=== PATIENT | female | born 1950 | race Caucasian/White ===

== ENCOUNTER → 2018-06-14 06:06 | Day surgery (SDC) | payer MEDICARE, MEDICAID ==
--- NOTE | 2018-06-08 21:39 | HP ---
CC: Dr. Michi Sheehan.* ADMISSION HISTORY AND PHYSICAL: DATE OF ADMISSION: 06/14/18 ATTENDING SURGEON: Dr. Junior Gant * (JAIR Erickson dictating). CHIEF COMPLAINT: Left breast cancer. HISTORY OF PRESENT ILLNESS: This is a 67-year-old female with COPD and chronic neck pain, who first noted a left breast lump about 1 month ago. She found it "accidentally" and does do a periodic but not regular monthly self-breast exam. She has noticed some tenderness in the area of the lump. There have not been any other changes including nipple discharge, bloody or otherwise. She was seen by her PCP, Dr. Sheehan and referred for mammogram. Mammogram was done on 05/17/18 and compared with prior mammogram from 2011. Noted was a density in the 12 o'clock position 2 cm from the nipple measuring 2.9 x 2.5 cm and suspicious for malignancy. This was confirmed by ultrasound. Also noted was a density in the tail of the breast consistent with lymph node. The patient was seen in the office by Dr. Gant on 05/21/18. His exam noted a palpable mass in the upper left breast, which was mildly tender and suspicious for malignancy. There was no skin or nipple change. There was no palpable lymphadenopathy bilaterally. There were no palpable abnormalities of the right breast. A needle biopsy was performed on the lesion in the office and pathology showed invasive ductal carcinoma which was ER positive, [place] negative and HER-2/lino negative. Dr. Gant discussed with her again today the results of the biopsy, the indications for surgery, the process for staging, and the likely need for additional therapy. She would like to proceed as scheduled with wide excision of left breast cancer with sentinel lymph node biopsy. There is no known family history of breast or ovarian cancer. The patient herself has not had any other prior breast problems or breast biopsies. PAST MEDICAL HISTORY: COPD, chronic neck pain (tentatively scheduled for a decompressive neck surgery in the near future, which for now has been deferred) . The patient did have a fall 4 to 5 years ago while at work with some associated amnesia and I believe loss of consciousness, though apparently negative workup and no subsequent events. PAST SURGICAL HISTORY: Previous surgeries include lumbar back surgery, bilateral cataract extractions, multiple basal cell excisions, right carpal tunnel release, and multiple surgeries for ovarian cysts as well as a laparotomy for small bowel obstruction for lysis of adhesions. No reported surgical or anesthesia problems. CURRENT MEDICATIONS: 1. Albuterol nebulizer 4 times daily. 2. Combivent MDI 1 puff 4 times a day p.r.n. 3. [place] 5/325 t.i.d. (occasionally 4 times daily) for neck pain. 4. Multivitamin once daily. 5. CBD oil 0.5 mL b.i.d. DRUG ALLERGIES: CEFTRIAXONE (rash and difficulty breathing) (the patient has subsequently tolerated cephalexin without significant side effect). FAMILY HISTORY: Negative for anesthesia problems, bleeding or clotting disorders, and negative for breast or ovarian cancer. SOCIAL HISTORY: The patient lives with one of her daughters (she has 3 daughters and 1 granddaughter present at today's visit). She is retired from school cafeteria work. She is a smoker around 1 pack per day for the past 50 years. She is attempting to cut down and would like to eventually quit. I did discuss with her the benefits of smoking cessation at least for the morning of surgery. She drinks alcohol rarely and denies any other drug use. REVIEW OF SYSTEMS: General: No recent constitutional symptoms or acute illnesses other than described in the HPI. HEENT: She has full upper and lower dentures. No recent changes in vision. She does have some decreased hearing acuity. Cardiovascular: No chest pain, palpitations, or history of heart murmur. No history of hypertension. Respiratory: COPD. No recent exacerbations or changes. She does have occasional cough and does have some dyspnea with exertion at her baseline. GI: No problems reported. Colonoscopy done within the past year reportedly normal. : No problems reported. SCRAP CUTTER: As above. Her last pelvic exam and Pap smear were well within the past 2 years and reportedly normal. Endocrine: No diabetes or thyroid dysfunction. PHYSICAL EXAM: GENERAL: Well-nourished, somewhat thin female, in no acute distress. VITAL SIGNS: Height 62 inches, weight 109 pounds. Blood pressure 116/68, pulse 72, respirations 16. HEENT: Pupils equal and round, reactive. EOMs intact. No conjunctival pallor. Oropharynx: Full upper and lower dentures. No intraoral lesions. NECK: No thyromegaly or masses. No palpable cervical or supraclavicular lymphadenopathy. LUNGS: Decreased breath sounds with occasional coarse rhonchi, which clear after coughing. No wheezes or rales. HEART: Regular rate and rhythm. No murmur appreciated. BREASTS: As above per Dr. Gant's exam. No additions. ABDOMEN: Soft, nontender to palpation. No palpable masses or organomegaly. Well- healed surgical scars. SCRAP CUTTER: Genitalia and rectal not done. BACK: No spinous process or CVA tenderness. EXTREMITIES: No edema. SKIN: Warm and dry. No suspicious rashes or lesions noted, though a complete skin survey was not performed. NEUROLOGICAL: Grossly intact. She is hard of hearing and mildly anxious. IMPRESSION: Left breast cancer. PLAN: Wide excision left breast cancer; sentinel lymph node biopsy. JAIR ERICKSON [id number]/[facility] #: [id number] [id number]
[~2018-06-14 06:06] MED LIST: Buffered Lidocaine 0.9% SYRIN* 5 ML/SYR SYRINGE INTRADERM ONE; Bupivacaine 0.5% W/EPI SDV* 30 ML VIAL ONE; Dexamethasone IV* 4 MG/ML 1 ML (4 MG) ONE; Dexamethasone TAB* 4 MG ONE; Dexamethasone TAB* 4 MG PO ONE; DiMENhydriNATE IV* 50 MG/ML VIAL IV PUSH PRN; Famotidine IV* 10 MG/ML 2 ML (20 mg) IV ONE; Famotidine IV* 10 MG/ML 2 ML (20 mg) ONE; HYDROmorphone INJ1* 1 MG/ML SYRINGE IV PRN; KETAMINE HCL* 50 MG/ML 10 ML VIAL ONE; Lactated Ringers 1000 ML Bag* 1,000 ML IV SCH; Lidocaine 1% INJ* 10 MG/ML 30 ML SDV ONE; Lidocaine 2% PF * 5 ML VIAL ONE; Lidocaine 2.5%/Prilocain 2.5%* 5 GM TUBE ONE; Midazolam* 1 MG/ML 5 ML VIAL (5 MG) ONE; Naloxone* 0.4 MG/ML 1 ML VIAL IV PRN; Ondansetron ODT TAB* 4 MG ONE; Ondansetron TAB* 4 MG PO ONE; PROCHLORPERAZINE INJ 5 MG/ML 2 ML VIAL IV PRN; Propofol* 10 MG/ML 20 ML BTL ONE; ceFAZolin 2 GM PREMIX in ORs 2 GM/50 ML BAG IVPB ONE; fentaNYL* 50 MCG/ML 2 ML VIAL (100 MCG VIAL) ONE; oxyCODONE/Acetamin 5/325 MG* TAB PO PRN
[2018-06-14] MEDS: fentaNYL* 50 MCG/ML 2 ML VIAL (100 MCG VIAL) IV PRN ×2 (13:35→14:30)
[2018-06-14 15:05] VITALS: BP 103/89
--- NOTE | 2018-06-14 18:41 | OP ---
CC: Dr. Gant; Dr. Sheehan; [facility]; Dr. Denny Peralta OPERATIVE REPORT: DATE OF OPERATION: 06/14/18 DATE OF : 48 SURGEON: Dr. Gant. BUILDING MAINTENANCE SUPERINTENDENT: Jeanie Rodriguez NP ANESTHESIOLOGIST: Dr. Mark. ANESTHESIA: LMAC anesthesia. PRE-OP DIAGNOSIS: Left breast cancer. POST-OP DIAGNOSIS: Left breast cancer. OPERATIVE PROCEDURE: Wide excision and sentinel node biopsy of left breast cancer. DESCRIPTION OF PROCEDURE: The patient was supine on the operating room table. After adequate intrave nous sedation, compression stockings, Rose Hugger warmer, and intravenous antibiotics, the left breas t and axillary regions were prepped with antiseptic and draped in a sterile fashion. Local infiltrat milagros anesthesia was administered. An elliptical incision of the upper portion of the left breast was created. This was approximately 4 x 8 cm in size and then dissection was carried down to remove the tumor with a generous margin around it. This was carried down to the pectoralis fascia. The piece o f the excision was approximately 4 x 5 x 7 cm in size. This was marked with the usual marking suture s and sent to Pathology. Hemostasis was obtained using electrocautery and closure accomplished using 3-0 and 5-0 Vicryl followed by Steri-Strips. In the left axilla, local anesthetic was administered a nd approximately 3 cm incision was created and the Neoprobe used to identify 3 sentinel nodes. The f irst one had a count of over 5000, the next two were much less hot. After that, the basin count was down to about 3 to 5 and no additional hot nodes could be identified. Closure was accomplished using 3-0 and 5- 0 Vicryl followed by Steri-Strips. She tolerated the procedure well, was brought to [facility] very in good condition. There were no complications, no drains. Pathologic specimens are as enumera brian above. Sponge and instrument counts correct. ESTIMATED BLOOD LOSS: 30 mL. [id number]/[facility] #: [id number]
== END | disposition home or self-care (01) ==
LOC: OR 06:06
PROVIDERS: ATTEND Surgery
DX: C50.912 Malignant neoplasm of unspecified site of left female breast (principal); J44.9 Chronic obstructive pulmonary disease, unspecified
CPT/HCPCS: 78195; 88307; 88342; 88360; A9270-GY; A9541; J0690; J1100; J2250; J2704; J3010; J8540

== ENCOUNTER 2018-07-18 16:04 | Observation (INO) | payer MEDICARE, MEDICAID ==
[2018-07-18] MEDS ORDERED: Lactated Ringers 1000 ML Bag* 1,000 ML IV.FLUID IV ONE (16:14)
[2018-07-18] MEDS ORDERED: Ibuprofen TAB* 400 MG PO ONE (16:15)
[2018-07-18] MEDS ORDERED: methylPREDNISolone 125 MG* 2 ML VIAL IV ONE (16:19)
--- NOTE | 2018-07-18 16:19 | ED ---
Influenza-Like Illness - HPI Summary HPI Summary: Pt is a 68 y/o female who presents to the ED c/o fever. She was sent here by Dr. Lobato, where she was diagnosed with Flu A. She is a breast CA pt, and had a lumpectomy on 06/14/18. Pt had a UTI last week and finished her antibiotics 2 days ago. Pt c/o fever, dry cough, pain with breathing, and rhinorrhea since yesterday. She notes constant SOB due to her COPD. Pt is a smoker. She denies getting this seasons flu shot or a PNA vaccine. - History of Current Complaint Chief Complaint: EDFluSymptoms Time Seen by Provider: 07/18/18 16:13 Hx Obtained From: Patient Onset/Duration: Gradual Onset, Lasting Days - 2, Still Present Associated Signs & Symptoms: Fever, Cough, Nasal Congestion Related Hx: Smoking - Allergy/Home Medications Allergies/Adverse Reactions: Allergies Allergy/AdvReac Type Severity Reaction Status Date / Time ceftriaxone [From Rocephin] Allergy Rash Verified 06/14/18 07:40 Home Medications: Home Medications Albuterol HFA INHALER* [Ventolin HFA Inhaler*] 1 puff INH QID PRN 07/18/18 [ History Confirmed 07/18/18] oxyCODONE/Acetamin 5/325 MG* [Percocet 5/325 TAB*] 1 tab PO QID PRN 07/18/18 [ History Confirmed 07/18/18] PMH/Surg Hx/FS Hx/Imm Hx GI History: Reports: Other GI Disorders - deformed epiglottis, aspirates easily Musculoskeletal History: Reports: Hx Arthritis - all over, Hx Tendonitis - wrists and ankles Sensory History: Reports: Hx Cataracts - haydee, Hx Contacts or Glasses - readers Denies: Hx Hearing Aid Opthamlomology History: Reports: Hx Cataracts - haydee, Hx Contacts or Glasses - readers Neurological History: Reports: Hx Headaches - frequent Psychiatric History: Reports: Hx Anxiety, Hx Depression - Cancer History Cancer Type, Location and Year: Breast CA. Skin CA - Surgical History Surgery Procedure, Year, and Place: appendectomy, 1973. myadhesions around colon. back 1998. right carpal tunnel, 2013. haydee cataracts, 2016. skin cancer 2016. lumpectomy Jun 2018 Hx Anesthesia Reactions: No Infectious Disease History: No Infectious Disease History: Denies: Traveled Outside the [place] in Last 30 Days - Family History Known Family History: Negative: Blood Disorder, Other - breast/ovarian CA - Social History Alcohol Use: Rare Alcohol Amount: holidays Hx Substance Use: No Substance Use Type: Reports: None Hx Tobacco Use: Yes Smoking Status (MU): Heavy Every Day Tobacco Smoker Amount Used/How Often: pack a day for 50 yrs Review of Systems Positive: Fever Positive: Nasal Discharge Positive: Shortness Of Breath, Cough, Other - pain with breathing All Other Systems Reviewed And Are Negative: Yes Physical Exam - Summary Physical Exam Summary: Appearance: Well appearing, no pain distress Skin: warm, dry, reflects adequate perfusion Head/face: normal Eyes: EOMI, MEENAKSHI ENT: mucous membranes moist, ears normal, mild nasal discharge Neck: supple, non-tender Respiratory: breath sounds present, inspiratory and expiratory wheezes mainly in bases, fine crackles in right base Cardiovascular: tachycardic but regular rhythm, pulses symmetrical, no LE edema Abdomen: non-tender, soft Bowel Sounds: present Musculoskeletal: normal, strength/ROM intact Neuro: normal, sensory motor intact, A&Ox3 Triage Information Reviewed: Yes Vital Signs On Initial Exam: Initial Vitals Temp Pulse Resp BP Pulse Ox 99.3 F 142 25 139/84 91 07/18/18 16:07 07/18/18 16:07 07/18/18 16:07 07/18/18 16:07 07/18/18 16:07 Vital Signs Reviewed: Yes Diagnostics - Vital Signs Vital Signs Temp Pulse Resp BP Pulse Ox 07/18/18 16:07 99.3 F 142 25 139/84 91 - Laboratory Result Diagrams: 07/18/18 17:24 07/18/18 17:24 Lab Statement: Any lab studies that have been ordered have been reviewed, and results considered in the medical decision making process. - Radiology CXR Radiology Interpretation Completed By: Radiologist Summary of Radiographic Findings: No radiographic evidence for acute cardiopulmonary abnormality on this. portable chest x-ray. ED physician reviewed radiology report. - EKG 16:30 Cardiac Rate: Tachycardia - 142 bpm EKG Rhythm: Sinus Tachycardia ST Segment: Non-Specific Summary of EKG Findings: RAD Flu Symptom Course/Dx - Course Course Of Treatment: Nurse's notes reviewed. Patient presents influenza A positive from the hematology/oncology clinic with rapid breathing and SIRS criteria. Patient has no infiltrate on x-ray but requires oxygen by nasal cannula 3 L without prior needed. She has received large-volume IV fluid resuscitation and antibiotics will not be given as her source of sepsis is viral in nature caused by influenza type A. With breathing treatments, IV fluid she is improving but still dyspneic and requiring oxygen. I discussed the case with hospitalist who will admit for further. - Diagnoses Differential Diagnosis/HQI/PQRI: Positive: Influenza, Pneumonia, Upper Respiratory Infection, Other - Bacteremia, viremia Provider Diagnoses: COPD exacerbation, Influenza A, Hypoxia, Severe sepsis - Physician Notifications Discussed Care Of Patient With: Sabrina Klein Time Discussed With Above Provider: 17:46 Instructed by Provider To: Admit As Inpatient Critical Care Time: 30-74 min - CCT is EXCLUSIVE of separately billable procedures. Discharge - Sign-Out/Discharge Documenting (check all that apply): Patient Departure - Admit Patient Received Moderate/Deep Sedation with Procedure: No - Discharge Plan Condition: Fair Disposition: ADMITTED TO [facility] Referrals: Aguila NESBITT,Michi Aldana [Primary Care Provider] - - Billing Disposition and Condition Condition: FAIR Disposition: Admitted to [facility] - Attestation Statements Document Initiated by Scribe: Yes Documenting Scribe: Kathy Aguilar Provider For Whom Scribe is Documenting (Include Credential): Joe Coyne MD Scribe Attestation: Kathy Ennis, scribed for Joe Coyne MD on 07/18/18 at 1802. Scribe Documentation Reviewed: Yes Provider Attestation: The documentation as recorded by the scribKathy aguilar accurately reflects the service I personally performed and the decisions made by me, Joe Coyne MD Status of Scribe Document: Viewed
[2018-07-18] MEDS ORDERED: Albuterol/Ipratropium NEB.SOL* Albuterol 2.5 MG/Ipratropium 0.5 MG 3 ML INH ONE (16:25)
--- OUTSIDE RECORDS SUMMARY | 2018-07-18 16:56 | XMS REPORT | Continuity of Care Document ---
:1950 External Reference #:[id number] Author Name Ilia Annika Care Team Providers Name Role Phone Michi Sheehan MD Primary Care Physician Unavailable Payers Type Date Identification Numbers Payment Provider Subscriber Expires: 2016 Policy Number: [id number] [place] Adele Mckay PayID: [id number] [address] [place] [address] Policy Number: [id number] Medicare Adele Mckay PayID: [id number] [address] [place] [address] Policy Number: [id number] Medicaid Adele Mckay Group Name: 1 1 [address] PayID: [id number] [place] [address] Advance Directives Description No Information Available Problems Description No Information Family History Date Family Member(s) Problem(s) Comments General Hypertension General Cancer General [place] General Kidney Disease General Migraine Social History Type Date Description Comments Sex Unknown Marital Status Lives With Daughter Lives With grandkids Occupation Retired ETOH Use Denies alcohol use Tobacco Use Start: Unknown Patient is a current smoker, smokes every day Recreational Drug Use Denies Drug Use Smoking Status Reviewed: 06/18/18 Patient is a current smoker, smokes every day Exercise Type/Frequency Exercises sporadically Allergies, Adverse Reactions, Alerts Date Description Reaction Status Severity Comments 05/21/2018 Ceftriaxone Active 11/09/2012 NKDA Inactive Medications Medication Date Status Form Strength Qnty SIG Indications Ordering Provider Multi 11/09/ Active Capsules 30caps daily Bc Adams M.D. Combivent 00// Active Aerosol 20-100mcg/ 1 puffs 4-6 Unknown Respimat 0000 Act times daily as needed Albuterol / Active Nebulizer (2.5mg/3ML 1 vial via Unknown Sulfate 0000 ) 0.083% nebulizer 4 times daily as needed CBD Oil / Active Unknown 0000 [place] / Active Tablets 5-325mg one tab by Unknown 0000 mouth three times a day No Active 11/09/ Hx Unknown Medications 2012 - 2016 Tramadol HCL / Hx Tablets 50mg 1-2 tablets Unknown 0000 - every 6 03/19/ hours as 2018 needed Oxycodone HCL / Hx Tablets 5mg takes 1/2 Unknown 0000 pill as needed for pain Immunizations Description No Information Available Vital Signs Date Vital Result Comment 06/25/2018 1:56pm Height 62 inches 5'2" Weight 114.00 lb Heart Rate 76 /min BP Systolic Recheck 122 mmHg BP Diastolic Recheck 80 mmHg Respiratory Rate 16 /min Body Temperature 98.3 F BMI (Body Mass Index) 20.8 kg/m2 06/18/2018 12:48pm Height 62 inches 5'2" Weight 115.00 lb Heart Rate 72 /min BP Systolic Recheck 122 mmHg BP Diastolic Recheck 76 mmHg Respiratory Rate 16 /min Body Temperature 97.7 F BMI (Body Mass Index) 21.0 kg/m2 06/12/2018 10:22am Heart Rate 68 /min Respiratory Rate 16 /min Body Temperature 98.6 F 06/08/2018 9:26am Weight 109.00 lb Heart Rate 72 /min BP Systolic 116 mmHg BP Diastolic 68 mmHg Respiratory Rate 16 /min Body Temperature 98.7 F 05/21/2018 1:44pm Height 62 inches 5'2" Weight 111.00 lb Heart Rate 76 /min BP Systolic Recheck 122 mmHg BP Diastolic Recheck 76 mmHg Respiratory Rate 16 /min Body Temperature 97.3 F BMI (Body Mass Index) 20.3 kg/m2 11/02/2017 2:56pm Height 62 inches 5'2" Weight 114.00 lb Heart Rate 101 /min BP Systolic Sitting 110 mmHg sitting, regular cuff left arm BP Diastolic Sitting 62 mmHg sitting, regular cuff left arm O2 % BldC Oximetry 94 % BMI (Body Mass Index) 20.8 kg/m2 09/28/2017 12:59pm Height 62 inches 5'2" Weight 118.00 lb Heart Rate 76 /min BP Systolic Recheck 130 mmHg BP Diastolic Recheck 84 mmHg Respiratory Rate 16 /min Body Temperature 98.9 F BMI (Body Mass Index) 21.6 kg/m2 08/31/2017 2:04pm Height 62 inches 5'2" Weight 120.00 lb Heart Rate 76 /min BP Systolic Recheck 124 mmHg BP Diastolic Recheck 78 mmHg Respiratory Rate 16 /min Body Temperature 98.4 F BMI (Body Mass Index) 21.9 kg/m2 11/09/2016 1:07pm Height 62 inches 5'2" Weight 120.00 lb Heart Rate 76 /min BP Systolic Recheck 122 mmHg BP Diastolic Recheck 84 mmHg Respiratory Rate 16 /min Body Temperature 98.6 F BMI (Body Mass Index) 21.9 kg/m2 Results Test Date Facility Test Result H/L Range Note Laboratory test 06/14/2018 [facility] Surgical SEE RESULT [address] [place] [address] [phone] 1 SEE RESULT BELOW Name: ADELE MCKAY : [address]: Junior Gant MD Acct: [id number] Unit: [id number] AGE: 67 Location: OR Re06/14/18 SEX: F Status: REG [facility] [place] SPEC: [id number] GRAEME: 06/14/18-[address]: Junior Gant MD REQ: [id number] RECD: 06/14/186 STATUS: SOUT _ ORDERED: LEVEL 5/4, IMMUNO-FIRST/3, IMMUNO-QUANT/3 ADDENDUM Immunohistochemical stains, with appropriately reacting controls, were performed on sections cut from the larger tumor with the following results: ER moderately to strongly positive, approximately 90% of tumor cells VT negative (0%) HER-2/lino negative (1+) Addendum Signed (signature on file) Angélica Boss MD 1041 Immunohistochemical stains, with appropriately reacting controls, were performed on sections cut from the smaller mass with the following results: ER moderately to strongly positive, approximately 90% of tumor cells VT moderately to strongly positive, approximately 5% of tumor cells HER-2/lino negative (1+) Biomarker staining on the larger mass is pending repeat and the results will be reported in an additional addendum. Addendum Signed (signature on file) Angélica Boss MD 1012 FINAL DIAGNOSIS 1. Breast, left, lumpectomy: -- Invasive ductal adenocarcinoma of breast, multifocal, with: Size: 2.9 x 2.3 x 2.0 cm and 1.1 x 1.0 x 0.7 cm. Overall [place] grade: 3. Tubule formation: 3. Nuclear grade: 3. Mitotic count: 2. Margins: Invasive carcinoma is 1.5 mm from the deep margin, 4 mm from the inferior anterior margin, and 5 mm from the superior anterior margin. CONTINUED ON NEXT PAGE DEPARTMENT OF PATHOLOGY, [address], [place], [place] [address] Jovan Pederson M.D. Director [facility] # [id number] RUN DATE: 06/20/18 [facility] LAB LIVE PAGE 2 Patient: ADELE MCKAY [id number] (Continued) FINAL DIAGNOSIS (Continued) Lymphovascular invasion: Not identified. Skin: Not involved. Chest-wall / pectoralis involvement: Not applicable. Ductal carcinoma in situ (DCIS): Not identified. ER, VT, Her2/lino by immunohistochemistry with appropriate controls: ER: Per [id number], positive, 2-3+, 50%; see comment. VT: Per [id number], negative (0%); see comment. Her2/lino: Per [id number], negative (1+); see comment. Microcalcifications: Not identified. Other findings: None. pTNM histopathologic stage: pT2(m) N0 M N/A. 2. [place] lymph node #1, left axilla, excision: -- One lymph node negative for metastatic carcinoma (0/1). 3. [place] lymph node #2, left axilla, excision: -- One lymph node negative for metastatic carcinoma (0/1). 4. [place] lymph node #3, left axilla, excision: -- One lymph node negative for metastatic carcinoma (0/1). COMMENT: Per sentinel lymph node protocol, deeper levels of sectioning and pankeratin immunohistochemical stains, with appropriately reacting controls, were performed in the evaluation of specimens 2, 3, and 4, and support the diagnoses. The original diagnosis was performed on fine-needle aspiration biopsy material. Because two distinct tumors are identified, repeat biomarker studies are pending on both tumors and the results will be reported in an addendum. Dr. Pederson reviewed this case in intradepartmental consultation and agrees with the diagnosis. CONTINUED ON NEXT PAGE DEPARTMENT OF PATHOLOGY, [address] [place] [address] Jovan Pederson M.D. Director [facility] # [id number] RUN DATE: 06/20/18 [facility] LAB LIVE PAGE 3 Patient: ADELE MCKAY [id number] (Continued) PRE-OPERATIVE DIAGNOSIS (Continued) PRE-OPERATIVE DIAGNOSIS Malignant neoplasm of unspecified site left breast; 1. Usual suture markings : long-lateral, medium-medial, short-superior GROSS DESCRIPTION 1. The specimen is received fresh labeled, Left Breast Wide Excision, Usual Markings, and consists of a 9.1 x 6.7 x 2.2 cm yellow ovoid portion of fibrofatty soft tissue with three attached sutures which are designated as follows: long-lateral, short- superior and medium-medial. The specimen is partially surfaced by a 7.5 x 1.8 cm lynch- white skin ellipse on the central superior anterior aspect. There is a 2.9 x 2.3 x 2.0 cm lynch- white to pink well-defined focally cystic and mucinous indurated mass within the central specimen, 0.1 cm from the deep margin, 0.4 cm from the inferior anterior margin and 0.9 cm from the superior anterior margin. Additionally, there is a discrete 1.1 x 1.0 x 0.7 cm lynch- white indurated well-defined lesion 0.6 cm lateral to the larger mass, 0.5 cm from the superior anterior margin and 0.6 cm from the deep margin. The remaining cut surface consists predominantly of yellow lobulated adipose tissue with scant interspersed lynch-white fibrous tissue. The specimen is inked as follows: superior anterior-blue, inferior anterior- green and deep-black, serially sectioned from lateral to medial and territory service representative sections are submitted in cassettes A through J to include smaller lesion in cassettes B and C, intervening tissue in cassette D and mass in cassettes E through H. 2. The specimen is received in formalin labeled, [place] Node #1 Left Axilla, and consists of a 1.3 x 1.1 x 0.6 cm lynch-pink lymph node with a small amount of adherent yellow fat. The cut surface is glistening lynch-pink. The specimen is serially sectioned and entirely submitted in one cassette. 3. The specimen is received in formalin labeled, [place] Node #2 Left Axilla, and consists of a 1.5 x 0.7 x 0.4 cm lynch-pink lymph node with mild adherent yellow fat. The cut surface is glistening lynch-pink. The specimen is serially sectioned and entirely submitted in one cassette. 4. The specimen is received in formalin labeled, [place] Node #3 Left Axilla, and consists of a 1.2 x 0.8 x 0.4 cm lynch-red lymph node with moderate adherent yellow fat. The cut surface is glistening lynch-red. The specimen is serially sectioned and entirely submitted in one cassette. Signed by and Reported on: Angélica Boss MD 06/15/18 1612 END OF REPORT DEPARTMENT OF PATHOLOGY, [address] [place] [address] Jovan Pederson M.D. Director [facility] # [id number] Procedures Date Code Description Status 06/14/2018 16699 Biopsy/Excision Deep Axillary Node(S) Completed 06/14/2018 03243 Mastectomy Partial Completed 06/14/2018 34579 Mastectomy Partial Completed 05/21/2018 71595 Fine Needle Aspiration; W/O Imaging Guidance Completed 09/14/2017 65793656 Colonoscopy Completed 11/09/2016 19629 Fibroptic Laryngoscopy Completed 11/20/2013 17801 Holter Monitor Review (24 hr)dr katie & interp only Completed 08/27/2013 21734 Treadmill Interp/Report Only Completed 08/27/2013 67624 Stress Test Supervsn W/Out I/R Completed 12/13/2011 46451 Carpal Tunnel Release Completed Encounters Type Date Location Provider Dx Diagnosis Office Visit 06/12/2018 Surgical Junior Gant C50.912 Malignant neoplasm 10:30a [facility] of unspecified site of left female breast Office Visit 05/21/2018 Surgical Junior Gant C50.912 Malignant neoplasm 1:30p [facility] of unspecified [facility] [place] site of left female breast Office Visit 11/02/2017 Surgical Petey Arellano Z48.89 Encounter for 2:45p [facility] MD other specified [facility] [place] [facility] after[facility] Office Visit 09/28/2017 [facility] Petey SBipin Z48.89 Encounter for 1:00p [facility] MD other specified AT [place] surgical aftercare Office Visit 11/09/2016 [facility], R13.13 Dysphagia, 1:30p [facility] Of Ad[facility] [place] [facility] pharyngeal phase Z72.0 Tobacco use Office Visit 08/27/2013 11:35a [facility] Arellano 786.59 Pain Chest Cardiology [facility] [place] Other 794.31 Electrocardiogram (ECG) (EKG) Abnormal 786.05 Shortness Of Breath 272.4 Hyperlipidemia Other Unspec Office Visit 12/06/2011 1:45p Orthopedic Ravindra Chavez, 354.0 Carpal T[facility] [place] [facility] [place] Plan of Treatment 06/25/2018 - Junior Gant M.D.C50.912 Malignant neoplasm of unspecified site of left female breastFollow up:As needed
[2018-07-18] MEDS ORDERED: Oseltamivir SUSP 75 MG dose* 75 MG/12.5 ML ORAL.SYRIN PO ONE (17:13)
[2018-07-18 17:33] LABS: ABS Basophils 0.1 10^3/ul (0-0.2); ABS Eosinophils 0.3 10^3/ul (0-0.6); ABS Lymphocytes 1.9 10^3/ul (1.0-4.8); ABS Monocytes 0.5 10^3/ul (0-0.8); ABS Neutrophils 4.3 10^3/ul (1.5-7.7); ABS Nucleated RBC 0 10^3/ul; Eosinophil % 3.7 %; Hematocrit 41 % (35-47); Hemoglobin 13.7 g/dl (12.0-16.0); Lymphocyte % 26.7 %; Mean Corpuscular HGB Conc 33 g/dl (31-36); Mean Corpuscular Hemoglobin 32 pg (27-31); Mean Corpuscular Volume 95 fL (80-97); Mean Platelet Volume 8.3 fL (7.4-10.4); Nucleated Red Blood Cells % 0; Platelet Count 243 10^3/ul (150-450); Red Blood Count 4.31 10^6/ul (4.00-5.40); Red Cell Distribution Width 13 % (10.5-15); White Blood Count 7.1 10^3/ul (3.5-10.8)
[2018-07-18 17:41] LABS: INR 0.94 (0.77-1.02)
[2018-07-18 17:51] LABS: Albumin 4.3 g/dL (3.2-5.2); Albumin/Globulin Ratio 1.5 (1-3); BUN/Creatinine Ratio 9.1 (8-20); C Reactive Protein 19.61 mg/L (<8.01); Calcium 9.4 mg/dL (8.6-10.3); EGFR African American 89.9 (>60); EGFR Non-African American 74.3 (>60); Globulin 2.8 g/dL (2-4); Potassium 3.3 mmol/L (3.5-5.0); Total Bilirubin 0.3 mg/dL (0.2-1.0); Total Protein 7.1 g/dL (6.4-8.9)
[2018-07-18] MEDS ORDERED: Acetaminophen TAB* 325 MG PO PRN (20:55)
[2018-07-18] MEDS ORDERED: Albuterol 2.5 MG/3 ML NEB.SOL* (0.083%) INH PRN (20:55)
[2018-07-18] MEDS ORDERED: ALBUTEROL INH PRN (21:01)
[2018-07-18] MEDS ORDERED: Albuterol HFA INHALER* 8 gm MDI INH PRN (21:01)
[2018-07-18] MEDS ORDERED: IPRATROPIUM INH PRN (21:01)
[2018-07-18] MEDS ORDERED: NS 0.9% 1000 ML** 1,000 ML IV ONE (21:06)
[2018-07-18] MEDS ORDERED: Potassium Chlor TAB* 20 MEQ TAB.ER PO ONE (21:33)
[2018-07-18] MEDS: Enoxaparin(*) 40 MG/0.4 ML SYR SUBCUT SCH (22:26)
[2018-07-18] MEDS: oxyCODONE/Acetamin 5/325 MG* TAB PO PRN (23:43)
--- NOTE | 2018-07-19 00:23 | HP ---
CC: Dr. Sheehan * HISTORY AND PHYSICAL: DATE OF ADMISSION: 07/18/18 PROVIDER: Romel Juárez NP PRIMARY CARE PROVIDER: Dr. Sheehan. ATTENDING PHYSICIAN WHILE IN THE HOSPITAL: Dr. Ladonna Davis *(dictated by Romel Juárez NP). CHIEF COMPLAINT: Cough and cold symptoms. HISTORY OF PRESENT ILLNESS: Ms. Kc is a 68-year-old female with a past medical history significant for recent diagnosis of breast cancer, COPD, chronic neck pain, who has had her appointment at her oncology office today with Dr. Lobato and at that appointment, the patient was found to be febrile and tachycardiac; so she was sent to the emergency room for further evaluation. Temperature on arrival to the emergency room was 99.3. The patient reports that she has had a runny nose and little bit shaky and thought that she had a cold. She denied any other symptoms. She does report a little bit of chest pain with a cough and some mild increased shortness of breath. She does report that she has a productive cough with clear secretions. She denies any fevers, edema, hemoptysis. She denies any nausea, vomiting, or diarrhea. Denies any abdominal pain. Denies any gross hematuria, dysuria, focal weakness, sensory loss. Denies any visual complaints, dysphagia, arthralgias, myalgias, rashes, lesions, or open source. Denies any psychosis or anxiety. While in the emergency room, the patient had routine lab work drawn which was within normal limits. She was found to be positive for flu A. The patient was initially placed in room 11, after she was sent from with positive flu A. She initially had a heart rate of 141 and O2 saturation in the high 80s on 2 L nasal cannula. Due to her hypoxia and new diagnosis of flu, we were asked to see and evaluate her for admission. PAST MEDICAL HISTORY: Significant for: 1. Breast cancer. 2. COPD. 3. Chronic neck pain. PAST SURGICAL HISTORY: 1. Appendectomy. 2. Breast biopsy. 3. Carpal tunnel surgery. 4. Cataract surgery. 5. D and C. 6. Laminectomy. 7. Lumpectomy. 8. Lysis of adhesions. 9. Ovarian cystectomy. 10. Skin cancer removal. 11. Tubal ligation. HOME MEDICATIONS: 1. Albuterol inhaler 1 puff q.i.d. as needed for shortness of breath and wheezing. 2. CBD oil 10 drops topically q.p.m. 3. Combivent 1 puff q.i.d. p.r.n. shortness of breath. 4. Oxycodone 1 tablet p.o. q.i.d. p.r.n. pain. ALLERGIES: She has an allergy to CEFTRIAXONE. FAMILY HISTORY: Maternal grandfather with prostate cancer. Father with bone cancer. Brother with prostate at the age of 61. SOCIAL HISTORY: The patient currently smokes a pack and a half a day. She smoked for approximately 50 years. She occasionally drinks alcohol. She lives with her daughter. She is . Surrogate decision maker in the event that she is unable to make her own decisions is her sister, Tanya and secondary decision maker is her daughter. She is a full code. REVIEW OF SYSTEMS: A complete review of systems was documented in the HPI. All pertinent positives per the HPI. All the rest of the 14-point review of system was negative. PHYSICAL EXAMINATION GENERAL: At this time, Ms. Kc is a 68-year-old female. She is resting on the stretcher in the emergency room. She does not appear to be in any acute distress. VITAL SIGNS: Blood pressure 117/71, heart rate 104, respirations are 22, O2 saturation is 90% with 2 L nasal cannula. HEENT: Head is atraumatic, normocephalic. Eyes: EOMs are intact. Sclerae anicteric and not pale. Oral mucosa appears to be moist. No oropharyngeal erythema. NECK: Supple. LUNGS: With inspiratory and expiratory wheezes bilaterally and diminished throughout. No rhonchi or rales. CARDIAC: S1, S2. Regular rate and rhythm. She is tachycardiac. ABDOMEN: Soft, nontender. Bowel sounds are present x4. EXTREMITIES: Pedal pulses are +2 bilaterally. She is able to move all 4 extremities with 5/5 strength. NEUROLOGIC: She is awake, alert, and oriented x3. Speech is clear. Thought process is intact. No gross focal deficits. SKIN: Intact. DIAGNOSTIC STUDIES/LAB DATA: WBCs are 7.1, RBCs 4.31, hemoglobin 13.7, hematocrit was 41, platelet count is 243. INR was 0.94. Sodium 141, potassium 3.3, chloride 102, carbon dioxide was 30, anion gap was 9, BUN was 7, creatinine 0.77, glucose was 112. Lactic acid was 4.2. Repeat lactic acid was 3.7. Calcium 9.4. Alkaline phosphatase was 116. C-reactive protein 19.61. Influenza A was positive. She had a chest x-ray. Radiologist impression: No radiographic evidence of acute cardiopulmonary abnormality on the portable chest x-ray. She had an electrocardiogram. EKG showed sinus tachycardia at a rate of 144. She does have some ST changes in V2 and V3. ASSESSMENT AND PLAN: Ms. Kc is a 68-year-old female with past medical history significant for recent diagnosis of breast cancer, chronic obstructive pulmonary disease, and chronic neck pain who presented to the emergency room from her oncologist office for positive flu A. She will be admitted under observation for: 1. Sepsis, related to influenza A. She does have lactic acidosis with lactic acid level of 4.2, repeat was 3.7. We will continue IV hydration. She did receive 1500 cc in the emergency room. I will give her another normal saline bolus of 1000 cc and continue normal saline at 75 cc per hour. She will be placed on Tamiflu 75 mg p.o. b.i.d. for 5 days. At this time, antibiotics are not indicted as she does have a viral infection with influenza. She currently has a low-grade temperature at 99.3. We will repeat her lactic acid in 4 hours. Her chest x-ray was clear with no pneumonia noted. The patient did met sepsis criteria with tachycardia, hypoxia, tachypnea, and elevated lactic acid. Her known source of sepsis is influenza A. 2. Hypoxic respiratory failure. The patient does have underlying chronic obstructive pulmonary disease. I suspect that underlying influenza is contributing to her hypoxia. We will support her oxygen demand with O2 via nasal cannula. She will have albuterol nebs as needed and her Combivent inhaler as needed for shortness of breath. I will start her on prednisone 40 mg p.o. daily. 3. Chronic obstructive pulmonary disease exacerbation. I suspect this is secondary due to influenza. We will continue her on prednisone and home inhalers as previously prescribed as well as nebulizers. I will place her on prednisone 40 mg p.o. daily starting tomorrow. 4. Hypokalemia. The patient did have a potassium of 3.3. I will give her 40 mEq of potassium and repeat BMP in the a.m. 5. FEN. She can have a regular diet. 6. Code status. She is a full code. 7. DVT prophylaxis. I will place her on Lovenox 40 mg subcu q.24 hours. TIME SPENT: Time spent on this admission was 60 minutes, greater than half the time was spent [id number] with the patient obtaining my history and physical, the other half of the time was spent going over my plan of care and implementing my plan of care. I have discussed this with my attending, Dr. Ladonna Davis. She is in agreement with my plan. ROMEL JUÁREZ, [employer]UT[employer] CONSULTANT [id number]/CPS #: [id number] MTDD
[2018-07-19 01:17] LABS: Urine Appearance Clear; Urine Bilirubin Negative (Negative); Urine Blood Negative (Negative); Urine Color Yellow; Urine Glucose Negative (Negative); Urine Ketones Trace (Negative); Urine Nitrite Negative (Negative); Urine Protein Negative (Negative); Urine Specific Gravity 1.024 (1.010-1.030); Urine Urobilinogen Negative (Negative)
[2018-07-19] MEDS: NS 0.9% 1000 ML** 1,000 ML IV SCH ×2 (04:58→13:35)
[2018-07-19 06:53] LABS: ABS Basophils 0 10^3/ul (0-0.2); ABS Eosinophils 0 10^3/ul (0-0.6); ABS Lymphocytes 0.7 10^3/ul (1.0-4.8); ABS Monocytes 0.1 10^3/ul (0-0.8); ABS Neutrophils 2.7 10^3/ul (1.5-7.7); ABS Nucleated RBC 0 10^3/ul; Eosinophil % 0 %; Hematocrit 35 % (35-47); Hemoglobin 11.6 g/dl (12.0-16.0); Lymphocyte % 19.5 %; Mean Corpuscular HGB Conc 33 g/dl (31-36); Mean Corpuscular Hemoglobin 32 pg (27-31); Mean Corpuscular Volume 95 fL (80-97); Mean Platelet Volume 8.6 fL (7.4-10.4); Nucleated Red Blood Cells % 0.1; Platelet Count 178 10^3/ul (150-450); Red Blood Count 3.68 10^6/ul (4.00-5.40); Red Cell Distribution Width 13 % (10.5-15); White Blood Count 3.6 10^3/ul (3.5-10.8)
[2018-07-19 07:12] LABS: BUN/Creatinine Ratio 14.8 (8-20); Calcium 8.7 mg/dL (8.6-10.3); EGFR African American 117.7 (>60); EGFR Non-African American 97.2 (>60); Potassium 4.5 mmol/L (3.5-5.0)
[2018-07-19] MEDS: Oseltamivir CAP* 75 MG CAP PO SCH ×2 (07:35→21:54)
[2018-07-19] MEDS: oxyCODONE/Acetamin 5/325 MG* TAB PO PRN ×2 (07:36→22:08)
[2018-07-19] MEDS ORDERED: Benzonatate CAP* 100 MG PO PRN (08:23)
[2018-07-19] MEDS: Albuterol/Ipratropium NEB.SOL* Albuterol 2.5 MG/Ipratropium 0.5 MG 3 ML INH PRN ×3 (08:24→14:10)
[2018-07-19] MEDS ORDERED: predniSONE TAB* 20 MG PO SCH (09:00)
[2018-07-19] MEDS: methylPREDNISolone 125 MG* 2 ML VIAL IV SCH ×2 (09:19→16:07)
[2018-07-19] MEDS: GuaiFENesin DM* 5 ML UDC PO SCH ×3 (09:24→21:54)
--- NOTE | 2018-07-19 17:36 | PN ---
Subjective Date of Service: 07/19/18 Interval History: Pt seen and examined. Meds and labs reviewed. CC: SOB and cough ROS: Denied TREJO/dizziness, F/C, N/V, CP, sputum production, abd pain, diarrhea, constipation, dysuria, myalgias, arthralgias, throat pain, and new skin lesions. The rest of the 14 point ROS are unremarkable. PHYSICAL EXAM: GEN APPEARANCE: Awake, not in acute distress HEENT: NC/AT, PERRLA, moist oral mucosa, (-) throat erythema NECK: Soft, supple, (-) cervical LAD, (-)JVD HEART: S1S2 WNL, RRR, No MRG CHEST:, GAE, (+)Wheeze, ronchi ABD: Soft, ND/NT, NABS 4x Q EXT: No C/C/E SKIN: Warm to touch PSYCH: No active psychosis, hallucinations, depression, SI/HI Objective Active Medications: Acetaminophen (Tylenol Tab*) 650 mg PO Q4H PRN PRN Reason: FEVER/PAIN Albuterol (Ventolin 2.5 Mg/3 Ml Neb.Jodi*) 2.5 mg INH RT.[id number] AWAKE PRN PRN Reason: sob/wheezing Last Admin: 07/18/18 23:46 Dose: 2.5 mg Albuterol (Ventolin Hfa Inhaler*) 1 puff INH QID PRN PRN Reason: SHORTNESS OF BREATH Albuterol/Ipratropium (Duoneb (Albuterol 2.5 Mg/Ipratropium 0.5 Mg)) 1 neb INH RT.[id number] AWAKE PRN PRN Reason: sob/wheexing Last Admin: 07/19/18 14:10 Dose: 1 neb Benzonatate (Tessalon Cap*) 100 mg PO TID PRN PRN Reason: COUGH Enoxaparin Sodium (Lovenox(*)) 40 mg SUBCUT Q24H JAMI Last Admin: 07/18/18 22:26 Dose: 40 mg Guaifenesin/Dextromethorphan (Robitussin Dm*) 10 ml PO TID JAMI Stop: 07/21/18 08:59 Last Admin: 07/19/18 13:35 Dose: 10 ml Sodium Chloride (Ns 0.9% 1000 Ml) 1,000 mls @ 100 mls/hr IV PER RATE [facility] Last Admin: 07/19/18 13:35 Dose: 100 mls/hr Methylprednisolone Sodium Succinate (Solu-Medrol 125mg *) 60 mg IV Q8H [facility] Last Admin: 07/19/18 16:07 Dose: 60 mg Pto: Albuterol/Ipratropium Resp(Nf) [Combivent Respimat (Nf)] 1 Puff 1 puff INH QID PRN PRN Reason: SOB/WHEEZING Last Admin: 07/19/18 07:35 Dose: 1 puff Oseltamivir Phosphate (Tamiflu Cap*) 75 mg PO BID [facility] Stop: 07/23/18 09:01 Last Admin: 07/19/18 07:35 Dose: 75 mg Oxycodone/Acetaminophen (Percocet 5/325 Tab*) 1 tab PO QID PRN PRN Reason: PAIN Last Admin: 07/19/18 07:36 Dose: 1 tab Fluticasone/Salmeterol (Advair Diskus 500-50*) 1 puff INH BID [facility] Vital Signs - 8 hr 07/19/18 07/19/18 07/19/18 10:33 11:54 15:36 Temperature 97.8 F 98.0 F Pulse Rate 87 82 Respiratory 20 19 16 Rate Blood Pressure 125/56 101/58 (mmHg) O2 Sat by Pulse 95 95 Oximetry Oxygen Devices in Use Now: Nasal Cannula Result Diagrams: 07/19/18 06:41 07/19/18 06:41 Microbiology and Other Data: Microbiology 07/18/18 17:24 Aerobic Blood Culture - Preliminary Blood Venous No Growth Day 1 Anaerobic Blood Culture - Preliminary No Growth Day 1 07/18/18 17:23 Aerobic Blood Culture - Preliminary Blood Venous No Growth Day 1 Anaerobic Blood Culture - Preliminary No Growth Day 1 Assess/Plan/Problems-Billing Assessment: - Patient Problems (1) H. influenzae septicemia Current Visit: Yes Status: Acute Code(s): A41.3 - SEPSIS DUE TO HEMOPHILUS INFLUENZAE SNOMED Code(s): 502661480 Comment: -Continue Tamiflu -Continue NS (2) COPD exacerbation Current Visit: Yes Status: Acute Code(s): J44.1 - CHRONIC OBSTRUCTIVE PULMONARY DISEASE W (ACUTE) EXACERBATION SNOMED Code(s): 539594523 Comment: -Placed on Solumedrol -Will place pt on Advair (3) Cough Current Visit: Yes Status: Acute Code(s): R05 - COUGH SNOMED Code(s): 11273348 Comment: -Will place pt on Robitussin DM and PRN Tessalon perles (4) Hypokalemia Current Visit: Yes Status: Acute Code(s): E87.6 - HYPOKALEMIA SNOMED Code( s): 77179503 Comment: -Resolved (5) DVT prophylaxis Current Visit: Yes Status: Acute Code(s): BHP0684 - SNOMED Code(s): 789531636 Comment: -Continue Lovenox SQ Status and Disposition: -As above
[2018-07-19] MEDS: Mometasone/Formoter 200/5 MDI INH SCH (20:49)
[2018-07-19] MEDS: Enoxaparin(*) 40 MG/0.4 ML SYR SUBCUT SCH (21:55)
[2018-07-20] MEDS: NS 0.9% 1000 ML** 1,000 ML IV SCH (03:18)
[2018-07-20] MEDS: Albuterol/Ipratropium NEB.SOL* Albuterol 2.5 MG/Ipratropium 0.5 MG 3 ML INH PRN (03:29)
[2018-07-20] MEDS ORDERED: methylPREDNISolone 125 MG* 2 ML VIAL IV SCH (05:07)
[2018-07-20 06:36] LABS: ABS Basophils 0 10^3/ul (0-0.2); ABS Eosinophils 0 10^3/ul (0-0.6); ABS Lymphocytes 1.2 10^3/ul (1.0-4.8); ABS Monocytes 0.5 10^3/ul (0-0.8); ABS Neutrophils 8.4 10^3/ul (1.5-7.7); ABS Nucleated RBC 0 10^3/ul; Eosinophil % 0 %; Hematocrit 34 % (35-47); Lymphocyte % 11.7 %; Mean Corpuscular HGB Conc 32 g/dl (31-36); Mean Corpuscular Hemoglobin 31 pg (27-31); Mean Corpuscular Volume 96 fL (80-97); Mean Platelet Volume 8.8 fL (7.4-10.4); Nucleated Red Blood Cells % 0; Platelet Count 211 10^3/ul (150-450); Red Blood Count 3.55 10^6/ul (4.00-5.40); Red Cell Distribution Width 14 % (10.5-15); White Blood Count 10.1 10^3/ul (3.5-10.8)
[2018-07-20 06:53] LABS: Albumin 3.1 g/dL (3.2-5.2); Calcium 8.6 mg/dL (8.6-10.3); Magnesium 2.1 mg/dL (1.9-2.7); Potassium 4.3 mmol/L (3.5-5.0); Total Bilirubin 0.2 mg/dL (0.2-1.0)
[2018-07-20 06:59] LABS: Albumin/Globulin Ratio 1.4 (1-3); BUN/Creatinine Ratio 19.3 (8-20); EGFR African American 127.2 (>60); EGFR Non-African American 105.2 (>60); Globulin 2.2 g/dL (2-4); Total Protein 5.3 g/dL (6.4-8.9)
[2018-07-20] MEDS: methylPREDNISolone 125 MG* 2 ML VIAL IV SCH (08:11)
[2018-07-20] MEDS: Mometasone/Formoter 200/5 MDI INH SCH (09:06)
[2018-07-20] MEDS: GuaiFENesin DM* 5 ML UDC PO SCH (09:30)
[2018-07-20] MEDS: Oseltamivir CAP* 75 MG CAP PO SCH (09:30)
[2018-07-20 11:59] VITALS: BP 126/65
--- NOTE | 2018-07-20 13:54 | DS ---
CC: Dr. Ladonna Davis; Dr. Joe Coyne; Dr. Michi Sheehan DISCHARGE SUMMARY: DATE OF ADMISSION: DATE OF DISCHARGE: 07/20/18 DISCHARGE DISPOSITION: To home. CONDITION: Fair. DISCHARGE DIAGNOSES: As follows: 1. Haemophilus influenzae septicemia, septicemia resolved. 2. Chronic obstructive pulmonary disease exacerbation, improved. 3. Cough secondary to above, improved. DISCHARGE MEDICATIONS: As follows: 1. Albuterol HFA inhaler 1 puff inhalation q.i.d. p.r.n. 2. Combivent Respimat 1 puff inhalation q.i.d. p.r.n. 3. Benzonatate capsule 100 mg p.o. t.i.d. p.r.n. 4. Robitussin DM 10 mL p.o. q.6 p.r.n. 5. Dulera 200/5 MDI 2 puffs inhalation b.i.d. 6. Tamiflu 75 mg p.o. b.i.d. for 3 more days. 7. Percocet 5/325 p.o. q.i.d. p.r.n. 8. CBD oil 10 drops topically q.p.m. 9. Prednisone rapid taper as prescribed. HISTORY OF PRESENT ILLNESS/HOSPITAL COURSE: The patient is a 68-year-old lady with recent history of breast cancer, COPD, and chronic neck pain who was admitted on 07/18/18 due to complaints of "cough and cold symptoms " where she was found to have septicemia secondary to H. flu that was responsive with appropriate hydration and Tamiflu. In addition, she complained of significant shortness of breath and was found to be in respiratory distress secondary to COPD exacerbation, which was treated with high-dose Solu-Medrol as well as inhaled corticosteroids and long- acting beta agonist as well as frequent nebulization. This has since improved. The patient's cough has also subsided and likely secondary to COPD exacerbation as described above. In the meantime, she had been advised to take Robitussin DM, and for breakthrough, Tessalon Perles p.r.n. that she had been prescribed. She had an ambulatory saturation test done and was able to maintain her oxygenation 88% or higher. The patient was advised to follow up and/or call her PCP within 3 days post discharge and has been advised that if her symptoms resume or develop new ones or feel unwell for any reason, to call her PCP first and if her PCP cannot entertain her due to scheduling issues alone, she had been advised to call [facility] if the issue is nonemergent. She has been advised to call my office regarding any questions, concerns, or further clarifications regarding her discharge plans and/or prescriptions and to take her medications as prescribed. REVIEW OF SYSTEMS: The patient is in good spirits and wants to go home. Denies any headaches, dizziness, fevers, chills, nausea, vomiting, chest pain, shortness of breath. Mentions that although she has cough still, it is now improving. Denies any abdominal pain, diarrhea, constipation, pain, and/or increased urination, myalgias, arthralgias, throat pain, or new skin lesions. The rest of the 14-point review of systems is, otherwise, unremarkable. PHYSICAL EXAMINATION: Reveals the most recent vital signs of records with blood pressure of 126/65, 97.9 degrees Fahrenheit, 55 beats per minute heart rate, 14 per minute respiratory rate, saturating at 93% on room air. General Appearance: The patient is awake, alert, and oriented x3, not in acute distress. HEENT: Normocephalic, atraumatic. PERRLA. Extraocular muscles intact. Negative for icterus. Moist oral mucosa. Negative throat erythema. Neck is soft, supple, with no cervical lymphadenopathy. No JVD. Heart: S1, S2 within normal limits. Regular rate and rhythm. No murmurs, rubs, or gallops. Chest: Clear to auscultation bilaterally. Good air entry. No wheezes, rales, or rhonchi. Abdomen is soft, nondistended, nontender. Normoactive bowel sounds x4 quadrants. Extremities: No cyanosis, clubbing, or edema. Psychiatric: No active psychosis, depression, suicidal or homicidal ideations. Skin is warm to touch. TIME SPENT: The total time spent evaluating the patient, reviewing pertinent data, and appropriate documentation is 45 minutes. [id number] #: [id number] MTDD
== END 2018-07-20 12:40 | disposition home or self-care (01) ==
LOC: ED 16:04 → MEDTELE 20:55
PROVIDERS: ADMIT Pediatrics; ATTEND Student in an Organized Health Care Education/Training Program
DX: A41.3 Sepsis due to Hemophilus influenzae (principal); B96.3 Hemophilus influenzae [H. influenzae] as the cause of diseases classified elsewhere; J44.1 Chronic obstructive pulmonary disease with (acute) exacerbation; R06.02 Shortness of breath; R05 Cough; E87.6 Hypokalemia; Z85.3 Personal history of malignant neoplasm of breast; M54.2 Cervicalgia; R00.0 Tachycardia, unspecified; F17.210 Nicotine dependence, cigarettes, uncomplicated
CPT/HCPCS: 36415; 71045; 80048; 80053; 81003; 83605; 83735; 84100; 84484; 85025; 85610; 86140; 87040; 87070; 87205; 93005; 94640; 96361; 96365; 96366; 96372; 96375; 96376; 99283; 99406; A9270-GY; G0378; J1650; J2930; J7512

== ENCOUNTER 2023-04-11 07:04 | Observation (INO) ==
[2023-04-11] MEDS ORDERED: Glucagon 1 mg VIAL KIT ONE (07:49)
[2023-04-11] MEDS ORDERED: Bupivacaine 0.5% PF 10 ML SDV VIAL INJ ONE ×2 (07:59→08:00)
[2023-04-11] MEDS ORDERED: fentaNYL 100 mcg/2 ml 50 MCG/ML VIAL ONE (08:23)
[2023-04-11] MEDS ORDERED: Midazolam 2 mg/2 ml VIAL 1 mg/ml 2 ml VIAL (2 mg) ONE (08:23)
[2023-04-11] MEDS ORDERED: ceFAZolin 1 GM ADVAN 1 GM ADDV.VIAL IVPB ONE (08:24)
[2023-04-11] MEDS ORDERED: Flumazenil 0.5 mg/5 ml 0.1 MG/ML 5 ml VIAL IV PRN (08:59)
[2023-04-11] MEDS ORDERED: Midazolam 10 mg/10 ml VIAL 1 mg/ml 10 ml VIAL (10 mg) IV SLOW PU ONE (08:59)
[2023-04-11] MEDS ORDERED: Naloxone 0.4 mg VIAL 0.4 mg/ml 1 ml VIAL IV PUSH PRN (08:59)
[2023-04-11] MEDS ORDERED: fentaNYL 100 mcg/2 ml 50 MCG/ML VIAL IV SLOW PU ONE (08:59)
[2023-04-11] MEDS ORDERED: Lidocaine 2% JELLY 6 ML Topical TOPICAL ONE (09:00)
[2023-04-11 09:01] LABS: Activated Partial Thrombo Time 27.9 seconds (26.0-38.0); INR 1.09 (0.83-1.13)
[2023-04-11] MEDS ORDERED: Enoxaparin 40 MG/0.4 ML SYR SUBCUT SCH (11:00)
[2023-04-11] MEDS ORDERED: Ondansetron 4 mg VIAL 2 MG/ML 2 ml VIAL IV PRN (11:24)
[2023-04-11] MEDS: NS 0.9% 1000 ml BAG 1,000 ML IV SCH ×2 (11:31→22:26)
[2023-04-11] MEDS: Morphine 2 MG/ML SYRINGE IV PRN ×4 (11:36→22:34)
[2023-04-11] MEDS ORDERED: NS 0.45% 1000 ml BAG 1,000 ML IV SCH (12:00)
[2023-04-11] MEDS ORDERED: CMCS: Letrozole 2.5 MG TAB (NF) PO SCH (21:00)
[2023-04-12] MEDS: Morphine 2 MG/ML SYRINGE IV PRN ×4 (04:51→16:12)
[2023-04-12] MEDS ORDERED: FLUTICAS/UMECLI/VILANT 100-62.5-25 MDI (NF) INH SCH (09:00)
[2023-04-12] MEDS ORDERED: Influenza vaccine *QUAD* *2023-24* 0.5 ML SYRINGE IM ONE (09:00)
[2023-04-12] MEDS: NS 0.9% 1000 ml BAG 1,000 ML IV SCH (11:22)
[2023-04-12 14:20] VITALS: BP 155/83
[2023-04-12] MEDS ORDERED: Al Hydrox/Mg Hydrox/Simet LIQ 30 ML UDC PO PRN (16:00)
== END 2023-04-12 17:45 | disposition home or self-care (01) | DRG 376 ==
LOC: SP 07:04 → SSU 10:59 → INTOOBSV 10:59
PROVIDERS: ADMIT Internal Medicine; ATTEND Internal Medicine Hematology & Oncology